=== PATIENT | female | born 1975 | race Caucasian/White ===

== ENCOUNTER → 2023-10-03 | Outpatient (CLI) | payer OTHER ==
--- NOTE | 2023-10-03 11:44 | FL ---
COMPARISON: NONE DATE OF EXAM: 10/03/2023 HISTORY: Dysphagia A number of thin and thick substances were ingested under the care of the department of speech pathol ogy. There is no evidence of aspiration or penetration. There is no evidence of obstruction. Delay ed oral clearance with the small amount of residuals within the piriform sinus and vallecula. DAP are not provided. IMPRESSION: 1. No evidence of aspiration or penetration.
== END | disposition home or self-care (01) ==
LOC: RADFLMAIN 10:54
PROVIDERS: ATTEND Family Medicine
DX: G32.81 Cerebellar ataxia in diseases classified elsewhere (principal); R13.12 Dysphagia, oropharyngeal phase
CPT/HCPCS: 74230